=== PATIENT | male | born 1935 | race Caucasian/White ===

== ENCOUNTER 2019-12-06 09:20 | Inpatient (IN) | payer OTHER ==
[~2019-12-06] VITALS: Ht 188 cm; Wt 65.3 kg
[~2019-12-06 09:20] MED LIST: ACET-1156 PO; ASPI-543 PO; CARB25TA3 PO; DULO60CA PO; FENO160T8 PO; LISI40TA11 PO; METF-370 PO; METO25TA5 PO; NAP500T PO; NIFE1TAB31 PO; ROPI0.5T16 PO; SIMV-13 PO
[2019-12-06] MEDS ORDERED: ONDANSETRON HCL 4 MG/2 ML VIAL IV ONE (09:30)
[2019-12-06] MEDS ORDERED: NITROGLYCERIN 0.4 MG SL TAB SL ONE (09:30)
[2019-12-06] MEDS ORDERED: MORPHINE SULF INJ 2 MG/ML SYRINGE 1ML IV ONE (09:30)
[2019-12-06 10:03] LABS: Basophils # (auto) 0 10 ^3/uL (0-0.2); Basophils % (auto) 0.4 % (0.0-2.0); Eosinophils # (auto) 0 10 ^3/uL (0-0.8); Eosinophils % (auto) 0.5 % (0.0-7.0); Hematocrit 35.2 % (41.0-53.0); Lymphocytes # (auto) 1.8 10 ^3/uL (0.4-5.4); Lymphocytes % (auto) 29.1 % (10.0-50.0); Mean Corpuscular Hemoglobin 30.3 pg (28.0-32.0); Mean Corpuscular Hgb Conc. 34.2 g/dL (32.0-36.0); Mean Corpuscular Volume 88.6 fL (80.0-100.0); Monocytes # (auto) 0.8 10 ^3/uL (0-1.3); Monocytes % (auto) 12.4 % (0.0-12.0); Neutrophils # (auto) 3.5 10 ^3/uL (1.6-8.6); Neutrophils % (auto) 57.6 % (37.0-80.0); Platelet Count (auto) 182 10^3/uL (140-450); Red Blood Cells 3.97 10^6/uL (4.5-5.90); White Blood Cell 6.1 10^3/uL (4.4-10.8)
[2019-12-06 10:08] LABS: INR 1.01 (0.9-1.15); Partial Thromboplastin Time 22.2 sec (23.0-31.2)
[2019-12-06 10:12] LABS: Albumin 3.9 g/dL (3.4-5.0); Anion Gap 6 (5-15); Blood Urea Nitrogen 21 mg/dL (7-18); Calcium 9.8 mg/dL (8.5-10.1); Carbon Dioxide 27 mmol/L (21-32); Chloride 109 mmol/L (98-107); Glucose 75 mg/dL (74-106); Magnesium 2.6 mg/dL (1.6-2.6); Sodium 142 mmol/L (136-145)
[2019-12-06 10:19] LABS: Alanine Aminotransferase 6 U/L (16-61); Alkaline Phosphatase 44 U/L (45-117); Aspartate Aminotransferase 9 U/L (15-37); BUN/Creatinine Ratio 18.9; Bilirubin, Total 0.4 mg/dL (0.2-1.0); GFR African American 81 mL/min; GFR Non-African American 67 mL/min; Total Protein 6.3 g/dL (6.4-8.2)
[2019-12-06 16:08] LABS: Urine Amorphous Crystal FEW /hpf (None Seen); Urine Bacteria FEW /hpf (None Seen); Urine Blood Negative /uL (Negative); Urine Budding Yeast MANY /hpf (None Seen); Urine Mucus FEW (None Seen); Urine Specific Gravity 1.014 (1.001-1.035); Urine WBC 14 /hpf (0 - 3); Urine WBC Clumps PRESENT /hpf (None Seen)
[2019-12-06] MEDS ORDERED: MORPHINE SULF INJ 2 MG/ML SYRINGE 1ML IV PRN ×2 (16:15)
[2019-12-06] MEDS ORDERED: NITROGLYCERIN 0.4 MG SL TAB SL PRN (16:15)
[2019-12-06] MEDS ORDERED: HYDROcodone-ACET 5/325MG TAB PO PRN (16:15)
[2019-12-06] MEDS ORDERED: ONDANSETRON HCL 4 MG/2 ML VIAL IV PRN (16:15)
[2019-12-06] MEDS ORDERED: DEXTROSE (50%) 50ML SYRG IV PRN (18:00)
[2019-12-06] MEDS: NIFEdipine ER 30 MG TAB PO SCH (18:32)
[2019-12-06] MEDS: CARBIDOPA W LEVODOPA 25/100mg TABLET PO SCH ×2 (18:32→21:13)
[2019-12-06 18:38] VITALS: BP 165/87
[2019-12-06] MEDS ORDERED: MEGE40TA15 PO (18:43)
[2019-12-06] MEDS ORDERED: SELE5CAP8 PO (18:45)
[2019-12-06] MEDS: ACCU-CHEK COMFORT CURVE STRIP VI SCH (21:13)
[2019-12-06] MEDS: InsuLIN REG 1unit/0.01ml Soln (100units/ml) SC SCH (21:53)
[2019-12-06] MEDS ORDERED: ATORVASTATIN 20 MG TAB PO SCH (22:00)
[2019-12-06 22:49] VITALS: BP 162/66
[2019-12-07 05:29] VITALS: BP 141/103
[2019-12-07] MEDS: ACCU-CHEK COMFORT CURVE STRIP VI SCH ×3 (06:02→17:00)
[2019-12-07] MEDS: InsuLIN REG 1unit/0.01ml Soln (100units/ml) SC SCH ×3 (06:02→17:00)
[2019-12-07] MEDS: CARBIDOPA W LEVODOPA 25/100mg TABLET PO SCH ×3 (06:02→18:00)
[2019-12-07 08:50] VITALS: BP 123/65
[2019-12-07] MEDS ORDERED: ASPirin 81 mg TAB PO SCH (10:00)
[2019-12-07] MEDS ORDERED: LISINOPRIL 20 MG TAB PO SCH (10:00)
[2019-12-07 11:59] VITALS: BP 155/75
[2019-12-07] MEDS: NIFEdipine ER 30 MG TAB PO SCH (18:00)
[2019-12-07 18:25] VITALS: BP 123/65
== END 2019-12-07 19:00 | disposition home health service (06) | DRG 313 ==
LOC: EDBD 09:20 → ER 09:20 → TELE 09:21 → TELE-WESTW 18:22
PROVIDERS: ADMIT Internal Medicine; ATTEND Internal Medicine
DX: R07.89 Other chest pain (principal); E78.5 Hyperlipidemia, unspecified; E11.9 Type 2 diabetes mellitus without complications; G20 Parkinson's disease; I10 Essential (primary) hypertension; I25.10 Atherosclerotic heart disease of native coronary artery without angina pectoris; M10.9 Gout, unspecified; Z82.49 Family history of ischemic heart disease and other diseases of the circulatory system; Z86.73 Personal history of transient ischemic attack (TIA), and cerebral infarction without residual deficits; Z95.5 Presence of coronary angioplasty implant and graft
CPT/HCPCS: 36415; 71045; 80053; 81001; 82962; 83735; 83880; 84484; 85025; 85610; 85730; 93005; 93306; 96372; G0378; J1815